=== PATIENT | female | born 1980 | race American Indian/Alaskan Native ===

== ENCOUNTER 2017-10-02 17:12 | Emergency (ER) | payer MEDICAID ==
[2017-10-02 17:31] VITALS: BP 134/96
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
== END 2017-10-02 18:41 | disposition home or self-care (01) ==
LOC: ED 17:12
DX: G44.89 Other headache syndrome (principal); F17.200 Nicotine dependence, unspecified, uncomplicated
CPT/HCPCS: 93005; 93010; 99282